=== PATIENT | male | born 1975 | race African-American/Black ===

== ENCOUNTER 2018-03-19 10:00 | Outpatient (RCR) | payer OTHER ==
[~2018-03-19 10:00] MED LIST: EXJADE500 MG PO; FOLIC ACID1 MG ORAL; HYDREA500 MG ORAL; MULTIVITAMINS1 EA14 PO; NICODERM CQ1 EAC2 TD; NORCO 5-325 TA1 EACH PO; VITAMIN C500 M1 PO; albuterol inhaler INH
== END 2018-04-18 | disposition home or self-care (01) ==
LOC: PTY 10:00
DX: M87.9 Osteonecrosis, unspecified (principal)

== ENCOUNTER 2018-04-24 09:50 | Outpatient (RCR) | payer OTHER | END 2018-05-18 | disposition home or self-care (01) | LOC: PTY 09:50 | DX: M87.9 Osteonecrosis, unspecified (principal) ==

== ENCOUNTER 2018-05-28 10:00 | Outpatient (RCR) | payer OTHER | END 2018-06-18 | disposition home or self-care (01) | LOC: PTY 10:00 | DX: M87.9 Osteonecrosis, unspecified (principal) ==

== ENCOUNTER 2018-06-19 09:15 | Outpatient (RCR) | payer OTHER | END 2018-07-19 | disposition home or self-care (01) | LOC: PTY 09:15 | DX: M87.9 Osteonecrosis, unspecified (principal) ==